=== PATIENT | male | born 1950 | race American Indian/Alaskan Native ===

== ENCOUNTER 2018-05-27 11:48 | Outpatient (CLI) | payer MEDICARE ==
[2018-05-27 12:45] LABS: Blood Urea Nitrogen 16 mg/dL (9-20)
--- NOTE | 2018-05-27 15:04 | Cat Scan Report ---
CT ABDOMEN PELVIS WITH CONTRAST: HISTORY: abdominal pain. COMPARISON: none. TECHNIQUE: Helical CT in 1.25mm intervals following IV contrast. Sagittal and coronal reconstructions. FINDINGS: Lung bases: Normal. Liver: Mild fatty change is noted throughout the liver. No focal mass or enlargement. Biliary system: Normal. Pancreas: Normal. Spleen: Normal. Kidneys/ureters/bladder: Normal. Adrenal glands: Normal. Aorta: Mild distal calcifications. No aneurysm. Intestines: No evidence for obstruction or focal inflammation. Small bowel loops are slightly fluid filled which may represent gastroenteritis. Appendix: Appendectomy changes are suspected. Pelvic viscera: Normal. Ascites: None. Adenopathy: None. Musculoskeletal: Normal. IMPRESSION: No acute process is identified in the abdomen or pelvis. Mild fatty change throughout the liver. Appendectomy. Consider gastroenteritis. These findings were discussed with Dr. Terry at 1500 hrs.
== END 2018-05-27 11:49 | disposition home or self-care (01) ==
LOC: CT 11:48
PROVIDERS: ATTEND Internal Medicine
DX: K76.0 Fatty (change of) liver, not elsewhere classified (principal); K21.9 Gastro-esophageal reflux disease without esophagitis; E78.00 Pure hypercholesterolemia, unspecified; I10 Essential (primary) hypertension; E11.9 Type 2 diabetes mellitus without complications; Z90.49 Acquired absence of other specified parts of digestive tract
CPT/HCPCS: 36415; 74177; 82565; 84520; Q9967